=== PATIENT | male | born 1950 | race Caucasian/White ===

== ENCOUNTER → 2017-02-07 | Outpatient (REF) | payer MEDICARE, MEDICAID ==
[2017-02-07 13:25] LABS: ALBUMIN 4.4 GM/DL (3.2-5.2); ALBUMIN/GLOBULIN RATIO 1.47 (1.00-1.93); ALKALINE PHOSPHATASE 88 U/L (45-117); ALT/SGPT 19 U/L (12-78); ANION GAP 10 MEQ/L (8-16); AST/SGOT 28 U/L (15-37); BLOOD UREA NITROGEN 17 MG/DL (7-18); CALCIUM LEVEL 9.6 MG/DL (8.8-10.2); CARBON DIOXIDE LEVEL 34 MEQ/L (21-32); CHLORIDE LEVEL 96 MEQ/L (98-107); GLOMERULAR FILTRATION RATE > 60.0 (>49); GLUCOSE, FASTING 102 MG/DL (80-110); POTASSIUM SERUM 4.1 MEQ/L (3.5-5.1); SODIUM LEVEL 140 MEQ/L (136-145); TOTAL PROTEIN 7.4 GM/DL (6.4-8.2)
== END ==
LOC: M SFHCADAM 07:59
PROVIDERS: ATTEND Physician Assistant
DX: E87.6 Hypokalemia (principal); Z12.5 Encounter for screening for malignant neoplasm of prostate; R80.9 Proteinuria, unspecified
CPT/HCPCS: 80053; 82043; G0103

== ENCOUNTER 2017-04-11 16:19 | Emergency (ER) | payer MEDICARE, MEDICAID ==
[~2017-04-11] VITALS: Ht 165.1 cm; Wt 43.1 kg
[2017-04-11] MEDS ORDERED: K-TA10TA2 PO (16:36)
[2017-04-11] MEDS ORDERED: VITA100066 PO (16:36)
[2017-04-11] MEDS ORDERED: LEVO125T3 PO (16:36)
[2017-04-11] MEDS ORDERED: FURO40TA2 PO (16:36)
--- NOTE | 2017-04-11 17:06 | REP ---
Clinical: Epigastric and abdominal pain. Technique: Upright view of the chest with supine and upright views of the abdomen and pelvis. Findings: Frontal upright view of the chest demonstrates no acute cardiopulmonary process or free air below the diaphragm to suspect pneumoperitoneum. Supine and upright views of the abdomen and pelvis demonstrate nonspecific bowel gas pattern without obstruction or perforation. Moderate fecal stasis noted. No organomegaly. No abnormal calcifications. Skeletal structures normal for age. Impression: Nonspecific bowel gas pattern. Signed by Zacarias Manning MD 04/11/2017 04:57 P
[2017-04-11] MEDS ORDERED: KETOROLAC 30 MG/ML VIAL (J1885) IV ONE (18:00)
[2017-04-11] MEDS ORDERED: ONDANSETRON 4MG/2ML VIAL (J2405) IV ONE (18:00)
[2017-04-11] MEDS ORDERED: GASTROGRAFIN SOLUTION 30ML PO ONE (18:20)
[2017-04-11] MEDS ORDERED: GASTROGRAFIN SOLUTION 30ML (Q9963) PO ONE (18:50)
[2017-04-11 19:02] LABS: ALBUMIN 4.2 GM/DL (3.2-5.2); ALBUMIN/GLOBULIN RATIO 1.35 (1.00-1.93); ALKALINE PHOSPHATASE 100 U/L (45-117); ALT/SGPT 21 U/L (12-78); ANION GAP 5 MEQ/L (8-16); AST/SGOT 23 U/L (15-37); BILIRUBIN,DIRECT 0.1 MG/DL (0.0-0.2); BILIRUBIN,TOTAL 0.7 MG/DL (0.2-1.0); BLOOD UREA NITROGEN 17 MG/DL (7-18); CALCIUM LEVEL 9.4 MG/DL (8.8-10.2); CARBON DIOXIDE LEVEL 32 MEQ/L (21-32); CHLORIDE LEVEL 105 MEQ/L (98-107); CREATININE FOR GFR 1.06 MG/DL (0.70-1.30); GLOMERULAR FILTRATION RATE > 60.0 (>49); GLUCOSE, FASTING 79 MG/DL (80-110); POTASSIUM SERUM 3.1 MEQ/L (3.5-5.1); SODIUM LEVEL 142 MEQ/L (136-145); TOTAL PROTEIN 7.3 GM/DL (6.4-8.2)
[2017-04-11 19:03] LABS: BASO % 0.6 % (0.0-1.0); EOS # 0.1 K/mm3 (0.0-0.50); EOS % 1.7 % (0.0-3.0); LARGE UNSTAINED CELL # 0.1 K/mm3 (0.0-0.4); LARGE UNSTAINED CELL % 2.6 % (0.0-4.0); LYMPH # 0.8 K/mm3 (1.5-4.5); LYMPH % 20.7 % (24.0-44.0); MEAN CORPUSCULAR HEMOGLOBIN 30.8 pg (27.0-33.0); MONO # 0.2 K/mm3 (0.0-0.8); MONO % 5.1 % (0.0-5.0); NEUTROPHILS # 2.5 K/mm3 (1.8-7.7); NEUTROPHILS % 69.3 % (36.0-66.0); PLATELET COUNT, AUTOMATED 229 k/mm3 (150-450); RED CELL DISTRIBUTION WIDTH 12.8 % (11.5-14.5); WHITE BLOOD COUNT 3.7 K/mm3 (4.0-10.0)
[2017-04-11] MEDS ORDERED: ISOVUE-370 76% 100ML VIAL (Q9967) As Ordered ONE (19:31)
--- NOTE | 2017-04-11 20:01 | REP ---
Clinical: Right lower quadrant pain. Technique: Axial contrast enhanced images from the lung bases to the pubic symphysis using oral and 90 ml Isovue 370 intravenous contrast material with coronal and sagittal re-formations as well as delayed images of the abdomen. Comparison: 04/12/2010. Findings: Lung bases demonstrate minimal posterior basilar dependent changes. Visualized portions of the heart and pericardium are normal. Liver demonstrates at least three benign cavernous hemangiomas - the largest of which is noted in the right lobe measuring 4.5 cm diameter, second lesion in the left lobe measures 2.0 cm diameter, and third lesion in the inferior right lobe measures 1.7 cm maximal diameter. Spleen, pancreas, gallbladder, bilateral adrenal glands are normal. Kidneys demonstrate a 6 mm nonobstructing right renal calculus along with sub centimeter right and 1.2 cm left renal cysts. The enteric system demonstrates significant fecal stasis involving the entire colon as well as the distal ileum. Loops of mid to distal ileum in the pelvis demonstrate mural thickening and enhancement which may reflect underlying element of enteritis and possibly inflammatory bowel disease requires consideration. There is no evidence for bowel obstruction. No free air to suggest perforation. No free fluid. Pelvis demonstrates normal bladder and enlarged prostate gland. No significant intraperitoneal or retroperitoneal adenopathy appreciated. Abdominal aorta and vasculature without aneurysm or dissection. Surrounding musculoskeletal structures demonstrate age-related changes. Impression: 1. Significant diffuse fecal stasis involving the distal ileum and entire colon raising the possibility of underlying constipation. Mildly enhancing mid to distal ileal loops in the pelvis cannot exclude associated enteritis or inflammatory bowel disease and correlation may be warranted. There is no evidence for bowel obstruction or perforation. 2. Three hepatic cavernous benign hemangiomas measuring up to 4.5 cm maximal diameter. 3. Enlarged prostate gland. 4. 6 mm nonobstructing right renal calculus and small bilateral renal cysts up to 1.2 cm diameter. Signed by Zacarias Manning MD 04/11/2017 07:53 P
[2017-04-11] MEDS ORDERED: MAGNESIUM CITRATE 300 ML BTL PO ONE (20:30)
[2017-04-11 20:36] VITALS: BP 126/74
== END 2017-04-11 21:04 | disposition home or self-care (01) ==
LOC: M ED 16:40
DX: K59.00 Constipation, unspecified (principal); D18.03 Hemangioma of intra-abdominal structures; N40.0 Benign prostatic hyperplasia without lower urinary tract symptoms; N20.0 Calculus of kidney; N28.1 Cyst of kidney, acquired; H81.09 Meniere's disease, unspecified ear; E03.9 Hypothyroidism, unspecified
CPT/HCPCS: 74022; 74177; 80048; 80076; 83690; 85025; 99283; Q9963; Q9967

== ENCOUNTER 2017-08-19 14:19 | Emergency (ER) | payer MEDICARE, MEDICAID ==
[~2017-08-19] VITALS: Ht 165.1 cm; Wt 43.2 kg
[~2017-08-19 14:19] MED LIST: FURO40TA2 PO; K-TA10TA2 PO; LEVO125T4 PO; VITA100066 PO
[2017-08-19] MEDS ORDERED: NAPR500T3 PO (16:25)
[2017-08-19 16:30] VITALS: BP 136/65
--- NOTE | 2017-08-20 08:18 | REP ---
AP PELVIS, ONE VIEW: HISTORY: Left thigh pain. There is no acute fracture or dislocation. There is narrowing of the joint spaces with associated sclerosis. IMPRESSION: There is no acute fracture or dislocation. Signed by Luis Waldron MD 08/20/2017 08:44 A
--- NOTE | 2017-08-20 08:19 | REP ---
LEFT FEMUR, FOUR VIEWS: HISTORY: Left thigh pain. There is no acute fracture or dislocation. There is narrowing of the hip joint space with associated sclerosis. There is narrowing of the knee joint space. IMPRESSION: There is no acute fracture or dislocation. Signed by Luis Waldron MD 08/20/2017 08:45 A
== END 2017-08-19 16:43 | disposition home or self-care (01) ==
LOC: M ED 14:19
DX: M76.32 Iliotibial band syndrome, left leg (principal); H81.09 Meniere's disease, unspecified ear; E03.9 Hypothyroidism, unspecified; Z79.899 Other long term (current) drug therapy

== ENCOUNTER 2017-11-14 02:10 | Emergency (ER) | payer MEDICARE, MEDICAID ==
[2017-11-14] MEDS ORDERED: ONDANSETRON 4MG/2ML VIAL (J2405) IV (07:00)
[2017-11-14] MEDS: GASTROGRAFIN SOLUTION 30ML (Q9963) PO (07:37)
[2017-11-14] MEDS: GASTROGRAFIN SOLUTION 30ML PO (07:37)
[2017-11-14 08:19] LABS: BASO % 0.8 % (0.0-1.0); EOS # 0.1 10^3/uL (0.0-0.50); EOS % 2.9 % (0.0-3.0); IMMATURE GRANULOCYTE % 0.3 % (0-0); LYMPH # 1.2 10^3/uL (1.5-4.5); LYMPH % 31.1 % (24.0-44.0); MEAN CORPUSCULAR HEMOGLOBIN 29.8 pg (27.0-33.0); MEAN CORPUSCULAR HGB CONC 33.8 g/dl (32.0-36.5); MEAN CORPUSCULAR VOLUME 88.1 fl (80.0-96.0); MONO # 0.3 10^3/uL (0.0-0.8); MONO % 8.2 % (0.0-5.0); NEUTROPHILS # 2.1 10^3/uL (1.8-7.7); NEUTROPHILS % 56.7 % (36.0-66.0); PLATELET COUNT, AUTOMATED 193 10^3/uL (150-450); RED CELL DISTRIBUTION WIDTH 12.8 % (11.5-14.5); WHITE BLOOD COUNT 3.8 10^3/uL (4.0-10.0)
[2017-11-14] MEDS: KETOROLAC 30 MG/ML VIAL (J1885) IV (08:23)
[2017-11-14 08:37] LABS: ALBUMIN 3.8 GM/DL (3.2-5.2); ALBUMIN/GLOBULIN RATIO 1.31 (1.00-1.93); ALKALINE PHOSPHATASE 72 U/L (45-117); ALT/SGPT 17 U/L (12-78); ANION GAP 5 MEQ/L (8-16); AST/SGOT 22 U/L (7-37); BILIRUBIN,DIRECT 0.1 MG/DL (0.0-0.2); BILIRUBIN,TOTAL 0.6 MG/DL (0.2-1.0); BLOOD UREA NITROGEN 12 MG/DL (7-18); CALCIUM LEVEL 8.8 MG/DL (8.8-10.2); CARBON DIOXIDE LEVEL 32 MEQ/L (21-32); CHLORIDE LEVEL 107 MEQ/L (98-107); GLOMERULAR FILTRATION RATE > 60.0 (>49); GLUCOSE, FASTING 98 MG/DL (80-110); POTASSIUM SERUM 3.3 MEQ/L (3.5-5.1); SODIUM LEVEL 144 MEQ/L (136-145); TOTAL PROTEIN 6.7 GM/DL (6.4-8.2)
== END 2017-11-14 10:39 | disposition home or self-care (01) ==
LOC: M ED 02:10
DX: K59.00 Constipation, unspecified (principal); N20.0 Calculus of kidney; E03.9 Hypothyroidism, unspecified; H81.09 Meniere's disease, unspecified ear; Z79.899 Other long term (current) drug therapy; Z87.442 Personal history of urinary calculi
CPT/HCPCS: Q9963

== ENCOUNTER → 2018-02-12 | Outpatient (REF) | payer MEDICARE, MEDICAID ==
[2018-02-12 13:09] LABS: MAU/CREAT RATIO 43.8 MCG/MG (0.0-30.0)
[2018-02-12 13:17] LABS: ALBUMIN 3.8 GM/DL (3.2-5.2); ALBUMIN/GLOBULIN RATIO 1.36 (1.00-1.93); ALKALINE PHOSPHATASE 69 U/L (45-117); ALT/SGPT 19 U/L (12-78); ANION GAP 6 MEQ/L (8-16); AST/SGOT 25 U/L (7-37); BILIRUBIN,TOTAL 0.9 MG/DL (0.2-1.0); BLOOD UREA NITROGEN 15 MG/DL (7-18); CARBON DIOXIDE LEVEL 32 MEQ/L (21-32); CHLORIDE LEVEL 102 MEQ/L (98-107); CHOLESTEROL LEVEL 278 MG/DL (<200); CHOLESTEROL RISK RATIO 4.212 (<5); CREATININE FOR GFR 0.96 MG/DL (0.70-1.30); FREE T4 0.88 NG/DL (0.76-1.46); GLOMERULAR FILTRATION RATE > 60.0 (>49); GLUCOSE, FASTING 83 MG/DL (70-100); HDL CHOLESTEROL 66 MG/DL (>40); LDL CHOLESTEROL 182.4 MG/DL (<100); NON-HDL-C 212 MG/DL; POTASSIUM SERUM 3.3 MEQ/L (3.5-5.1); SODIUM LEVEL 140 MEQ/L (136-145); TOTAL PROTEIN 6.6 GM/DL (6.4-8.2); TRIGLYCERIDES LEVEL 148 MG/DL (<150)
== END ==
LOC: M SFHCADAM 08:33
DX: E03.9 Hypothyroidism, unspecified (principal); E78.5 Hyperlipidemia, unspecified; R00.2 Palpitations; R80.9 Proteinuria, unspecified
CPT/HCPCS: 84443

== ENCOUNTER 2018-04-04 16:23 | Emergency (ER) | payer MEDICARE, MEDICAID ==
[2018-04-04 17:43] LABS: BASO % 0.6 % (0.0-1.0); EOS % 1.2 % (0.0-3.0); HEMOGLOBIN 12.3 g/dl (13.5-17.5); IMMATURE GRANULOCYTE % 0.6 % (0-3.0); LYMPH # 0.8 10^3/uL (1.5-4.5); MEAN CORPUSCULAR HEMOGLOBIN 30.2 pg (27.0-33.0); MEAN CORPUSCULAR HGB CONC 34.2 g/dl (32.0-36.5); MEAN CORPUSCULAR VOLUME 88.5 fl (80.0-96.0); MONO # 0.2 10^3/uL (0.0-0.8); MONO % 6.3 % (0.0-5.0); NEUTROPHILS # 2.3 10^3/uL (1.8-7.7); NEUTROPHILS % 67.3 % (36.0-66.0); PLATELET COUNT, AUTOMATED 172 10^3/uL (150-450); RED BLOOD COUNT 4.07 10^6/uL (4.30-6.10); RED CELL DISTRIBUTION WIDTH 12.7 % (11.5-14.5); WHITE BLOOD COUNT 3.3 10^3/uL (4.0-10.0)
[2018-04-04 17:55] LABS: ALBUMIN 4.3 GM/DL (3.2-5.2); ALBUMIN/GLOBULIN RATIO 1.65 (1.00-1.93); ALKALINE PHOSPHATASE 68 U/L (45-117); ALT/SGPT 19 U/L (12-78); ANION GAP 5 MEQ/L (8-16); AST/SGOT 22 U/L (7-37); BILIRUBIN,DIRECT 0.3 MG/DL (0.0-0.2); BILIRUBIN,TOTAL 1.1 MG/DL (0.2-1.0); BLOOD UREA NITROGEN 23 MG/DL (7-18); CALCIUM LEVEL 8.9 MG/DL (8.8-10.2); CARBON DIOXIDE LEVEL 31 MEQ/L (21-32); CHLORIDE LEVEL 107 MEQ/L (98-107); CREATININE FOR GFR 0.99 MG/DL (0.70-1.30); GLOMERULAR FILTRATION RATE > 60.0 (>49); GLUCOSE, FASTING 85 MG/DL (70-100); LIPASE 249 U/L (73-393); SODIUM LEVEL 143 MEQ/L (136-145); TOTAL PROTEIN 6.9 GM/DL (6.4-8.2)
[2018-04-04 18:07] LABS: APPEARANCE, URINE CLEAR (CLEAR); BACTERIA, URINE AUTO NEGATIVE (NEGATIVE); BILIRUBIN, URINE AUTO NEGATIVE (NEGATIVE); BLOOD, URINE BLOOD 1+ (NEGATIVE); COLOR, URINE YELLOW (YELLOW); GLUCOSE, URINE (UA) AUTO NEGATIVE (NEGATIVE); KETONE, URINE AUTO NEGATIVE (NEGATIVE); LEUKOCYTE ESTERASE, URINE AUTO NEGATIVE (NEGATIVE); MUCUS, URINE SMALL (NEGATIVE); NITRITE, URINE AUTO NEGATIVE (NEGATIVE); PROTEIN, URINE AUTO NEGATIVE (NEGATIVE); RBC, URINE AUTO 32 /HPF (0-3); SPECIFIC GRAVITY URINE AUTO 1.024 (1.002-1.035); SQUAMOUS EPITHELIAL CELL UR AU 0 /HPF (0-6); WBC, URINE AUTO 10 /HPF (0-3)
[2018-04-04] MEDS: GASTROGRAFIN SOLUTION 30ML PO ×2 (18:25→18:58)
[2018-04-04] MEDS: NS 1,000 ML IV (18:45)
[2018-04-04] MEDS ORDERED: ISOVUE-370 76% 100ML VIAL (Q9967) As Ordered (19:20)
== END 2018-04-04 22:15 | disposition home or self-care (01) ==
LOC: M ED 16:23
DX: K59.00 Constipation, unspecified (principal); K22.9 Disease of esophagus, unspecified; E78.5 Hyperlipidemia, unspecified; R16.0 Hepatomegaly, not elsewhere classified; E03.9 Hypothyroidism, unspecified; H81.09 Meniere's disease, unspecified ear; Z87.442 Personal history of urinary calculi; Z79.899 Other long term (current) drug therapy
CPT/HCPCS: Q9963

== ENCOUNTER 2019-02-22 23:29 | Emergency (ER) | payer MEDICARE, MEDICAID ==
[~2019-02-22] VITALS: Ht 165.1 cm; Wt 43.2 kg
[~2019-02-22 23:29] MED LIST changes: +CRES5TAB PO; +MELO7.5T7 PO; +NAPR-885 PO
[2019-02-23 00:52] LABS: BASO % 0.5 % (0.0-1.0); EOS # 0.1 10^3/uL (0.0-0.50); EOS % 3.8 % (0.0-3.0); HEMOGLOBIN 10.7 g/dl (13.5-17.5); LYMPH % 26.8 % (24.0-44.0); MEAN CORPUSCULAR HEMOGLOBIN 29.8 pg (27.0-33.0); MEAN CORPUSCULAR HGB CONC 32.4 g/dl (32.0-36.5); MEAN CORPUSCULAR VOLUME 91.9 fl (80.0-96.0); MONO # 0.3 10^3/uL (0.0-0.8); MONO % 7.8 % (0.0-5.0); NEUTROPHILS # 2.2 10^3/uL (1.8-7.7); NEUTROPHILS % 60.6 % (36.0-66.0); PLATELET COUNT, AUTOMATED 144 10^3/uL (150-450); RED BLOOD COUNT 3.59 10^6/uL (4.30-6.10); WHITE BLOOD COUNT 3.7 10^3/uL (4.0-10.0)
[2019-02-23 01:02] LABS: INR 1.07
[2019-02-23 01:03] LABS: PARTIAL THROMBOPLASTIN TIME 27.3 SECONDS (25.4-37.6)
[2019-02-23 01:14] LABS: ALBUMIN 4.3 GM/DL (3.2-5.2); ALT/SGPT 31 U/L (12-78); BILIRUBIN,DIRECT 0.2 MG/DL (0.0-0.2); BILIRUBIN,TOTAL 0.7 MG/DL (0.2-1.0); BLOOD UREA NITROGEN 17 MG/DL (7-18); CALCIUM LEVEL 9.1 MG/DL (8.8-10.2); CARBON DIOXIDE LEVEL 32 MEQ/L (21-32); CHLORIDE LEVEL 106 MEQ/L (98-107); CREATININE FOR GFR 0.95 MG/DL (0.70-1.30); GLOMERULAR FILTRATION RATE > 60.0 (>49); GLUCOSE, FASTING 80 MG/DL (70-100); LIPASE 286 U/L (73-393); POTASSIUM SERUM 3.6 MEQ/L (3.5-5.1); SODIUM LEVEL 144 MEQ/L (136-145); TOTAL PROTEIN 6.8 GM/DL (6.4-8.2)
[2019-02-23] MEDS ORDERED: ISOVUE-370 76% 100ML VIAL (Q9967) As Ordered ONE (01:27)
[2019-02-23] MEDS ORDERED: NS 1,000 ML IV ONE (01:30)
[2019-02-23 02:34] LABS: AMORPHOUS SEDIMENT SMALL (NEGATIVE); APPEARANCE, URINE CLEAR (CLEAR); BACTERIA, URINE AUTO NEGATIVE (NEGATIVE); BILIRUBIN, URINE AUTO NEGATIVE (NEGATIVE); BLOOD, URINE BLOOD NEGATIVE (NEGATIVE); CALCIUM OXALATE CRYSTALS SMALL; COLOR, URINE YELLOW (YELLOW); GLUCOSE, URINE (UA) AUTO NEGATIVE (NEGATIVE); KETONE, URINE AUTO NEGATIVE (NEGATIVE); LEUKOCYTE ESTERASE, URINE AUTO TRACE (NEGATIVE); NITRITE, URINE AUTO NEGATIVE (NEGATIVE); PROTEIN, URINE AUTO NEGATIVE (NEGATIVE); RBC, URINE AUTO 3 /HPF (0-3); SPECIFIC GRAVITY URINE AUTO 1.042 (1.002-1.035); SQUAMOUS EPITHELIAL CELL UR AU 0 /HPF (0-6); WBC, URINE AUTO 16 /HPF (0-3)
--- NOTE | 2019-02-23 02:45 | REPVR ---
EXAM: CT Abdomen and Pelvis With Contrast EXAM DATE/TIME: 02/23/2019 1:40 AM CLINICAL HISTORY: 68 years old, male; Pain; Abdominal pain; Other: Rlq pain TECHNIQUE: Imaging protocol: Axial computed tomography images of the abdomen and pelvis with intravenous contrast. Coronal and sagittal reformatted images were created and reviewed. Radiation optimization: All CT scans at this facility use at least one of these dose optimization techniques: automated exposure control; mA and/or kV adjustment per patient size (includes targeted exams where dose is matched to clinical indication); or iterative reconstruction. Contrast material: isovue 370 Contrast volume: 100 ml Contrast route: iv COMPARISON: CT ABD/PEL W/IV ORAL CONTRAS 04/04/2018 7:55 PM FINDINGS: Lower thorax: Minimal bibasilar fibro-atelectatic change. ABDOMEN: Liver: Lobular low-attenuation area in the cephalad right hepatic lobe measuring 3.8 cm with some nodular peripheral enhancement consistent with hemangioma. There is a second similar lesion more caudal and lateral measuring 14 mm. Gallbladder and bile ducts: The gallbladder is somewhat contracted with no stones. Pancreas: Normal. No ductal dilation. Spleen: Normal. No splenomegaly. Adrenals: Normal. No mass. Kidneys and ureters: Nonobstructing bilateral calculi. There are left renal cysts measuring up to 11 mm. Stomach and bowel: Borderline distention of the stomach with food material. Appendix: There are no changes of appendicitis. A normal appendix is not seen. PELVIS: Bladder: Unremarkable as visualized. Reproductive: Unremarkable as visualized. ABDOMEN and PELVIS: Intraperitoneal space: Normal. No free air. No significant fluid collection. Bones/joints: Mild anterior wedge configuration of L1 which is unchanged from the prior study. Soft tissues: Minimal fat filled umbilical hernias. Vasculature: There is minimal atherosclerotic calcification of the abdominal aorta. Lymph nodes: Normal. No enlarged lymph nodes. IMPRESSION: 1. There is been little change 04/04/2018. No acute interval process is identified.There are no changes of appendicitis. A normal appendix is not seen. 2. Hepatic hemangiomas. 3. Nonobstructing bilateral calculi. 4. There is borderline distention of the stomach which in view of a somewhat contracted gallbladder likely reflects recent ingestion. Electronically signed by: Yoel Hernandes On 02/23/2019 02:45:03 AM
[2019-02-23 03:11] VITALS: BP 136/65
== END 2019-02-23 03:18 | disposition home or self-care (01) ==
LOC: M ED 23:29
DX: R10.9 Unspecified abdominal pain (principal); D18.09 Hemangioma of other sites; N20.0 Calculus of kidney; Z79.899 Other long term (current) drug therapy
CPT/HCPCS: 74177; 80048; 80076; 81001; 83690; 85025; 85610; 85730; 87086; 96360; 96361; 99284; Q9967

== ENCOUNTER 2019-03-16 18:37 | Emergency (ER) | payer MEDICARE, MEDICAID ==
[~2019-03-16] VITALS: Ht 165.1 cm; Wt 48.7 kg
[2019-03-16 18:37] VITALS: BP 157/69
[2019-03-16] MEDS ORDERED: TETRACAINE 0.5% OPHTH SOLN 4ML OD ONE (19:30)
[2019-03-16] MEDS ORDERED: FLUORESCEIN OPHTH 1 MG STRIP OD ONE (19:30)
== END 2019-03-16 19:56 | disposition home or self-care (01) ==
LOC: M ED 18:37
DX: H57.11 Ocular pain, right eye (principal); I10 Essential (primary) hypertension; E78.5 Hyperlipidemia, unspecified; H81.09 Meniere's disease, unspecified ear; E03.9 Hypothyroidism, unspecified; Z79.899 Other long term (current) drug therapy; Z79.890 Hormone replacement therapy

== ENCOUNTER → 2019-04-26 | Outpatient (REF) | payer MEDICARE, MEDICAID ==
[2019-04-26 12:16] LABS: BASO % 0.6 % (0.0-1.0); EOS # 0.3 10^3/uL (0.0-0.50); EOS % 5.2 % (0.0-3.0); HEMATOCRIT 35.5 % (42.0-52.0); HEMOGLOBIN 11.6 g/dl (13.5-17.5); LYMPH # 1.5 10^3/uL (1.5-4.5); LYMPH % 30.4 % (24.0-44.0); MEAN CORPUSCULAR HEMOGLOBIN 29.4 pg (27.0-33.0); MEAN CORPUSCULAR HGB CONC 32.7 g/dl (32.0-36.5); MEAN CORPUSCULAR VOLUME 90.1 fl (80.0-96.0); MONO # 0.3 10^3/uL (0.0-0.8); MONO % 6.8 % (0.0-5.0); NEUTROPHILS # 2.7 10^3/uL (1.8-7.7); NEUTROPHILS % 56.6 % (36.0-66.0); PLATELET COUNT, AUTOMATED 215 10^3/uL (150-450); RED BLOOD COUNT 3.94 10^6/uL (4.30-6.10); WHITE BLOOD COUNT 4.8 10^3/uL (4.0-10.0)
[2019-04-26 12:53] LABS: ALBUMIN 3.7 GM/DL (3.2-5.2); ALT/SGPT 35 U/L (12-78); BILIRUBIN,TOTAL 0.6 MG/DL (0.2-1.0); BLOOD UREA NITROGEN 12 MG/DL (7-18); CARBON DIOXIDE LEVEL 31 MEQ/L (21-32); CHLORIDE LEVEL 106 MEQ/L (98-107); CHOLESTEROL LEVEL 215 MG/DL (<200); CHOLESTEROL RISK RATIO 3.161 (<5); CREATININE FOR GFR 1.13 MG/DL (0.70-1.30); FREE T4 0.76 NG/DL (0.76-1.46); GLOMERULAR FILTRATION RATE > 60.0 (>49); GLUCOSE, FASTING 81 MG/DL (70-100); HDL CHOLESTEROL 68 MG/DL (>40); LDL CHOLESTEROL 120 MG/DL (<100); MAGNESIUM LEVEL 1.9 MG/DL (1.8-2.4); NON-HDL-C 147 MG/DL; POTASSIUM SERUM 4.3 MEQ/L (3.5-5.1); SODIUM LEVEL 144 MEQ/L (136-145); TRIGLYCERIDES LEVEL 136 MG/DL (<150)
[2019-04-26 13:22] LABS: TOTAL 25(OH) VITAMIN D 41.3 NG/ML (30.0-100.0)
== END ==
LOC: M SFHCADAM 10:31
PROVIDERS: ATTEND Physician Assistant
DX: D64.9 Anemia, unspecified (principal); E87.6 Hypokalemia; E78.5 Hyperlipidemia, unspecified; E03.9 Hypothyroidism, unspecified

== ENCOUNTER 2019-06-19 15:09 | Emergency (ER) | payer MEDICARE, MEDICAID ==
[~2019-06-19] VITALS: Ht 162.6 cm; Wt 45.5 kg
[2019-06-19] MEDS ORDERED: FURO20TA2 (15:15)
[2019-06-19] MEDS ORDERED: LEVO50TA5 (15:15)
[2019-06-19] MEDS ORDERED: ROSU10TA6 (15:15)
[2019-06-19] MEDS ORDERED: ACETAMINOPHEN TAB 650MG DOSE (2X325MG) PO ONE (16:30)
--- NOTE | 2019-06-19 16:49 | REP ---
Clinical: Right foot pain centered at the first toe Technique: AP, lateral, bilateral oblique views right foot . Findings: The osseous structures and joint spaces are intact and normal. There is no evidence for acute fracture or dislocation. Surrounding soft tissues are unremarkable. No subcutaneous emphysema or radiodense foreign body. Impression: No acute fracture or dislocation. Electronically Signed by Zacarias Manning MD 06/19/2019 04:41 P
[2019-06-19 18:11] VITALS: BP 154/74
== END 2019-06-19 18:14 | disposition home or self-care (01) ==
LOC: M ED 15:09
DX: M79.671 Pain in right foot (principal); E78.5 Hyperlipidemia, unspecified; E03.9 Hypothyroidism, unspecified; Z87.442 Personal history of urinary calculi; H81.09 Meniere's disease, unspecified ear; Z79.899 Other long term (current) drug therapy

== ENCOUNTER → 2020-04-28 | Outpatient (REF) | payer MEDICARE, MEDICAID ==
[~2020-04-28] MED LIST changes: +FURO20TA2; +LEVO50TA5; +ROSU10TA6
[2020-04-28 18:57] LABS: HEMOGLOBIN 12.6 g/dl (13.5-17.5); MEAN CORPUSCULAR HEMOGLOBIN 28.3 pg (27.0-33.0); MEAN CORPUSCULAR HGB CONC 33.2 g/dl (32.0-36.5); MEAN CORPUSCULAR VOLUME 85.4 fl (80.0-96.0); PLATELET COUNT, AUTOMATED 262 10^3/uL (150-450); RED BLOOD COUNT 4.45 10^6/uL (4.30-6.10); WHITE BLOOD COUNT 5.2 10^3/uL (4.0-10.0)
[2020-04-28 19:43] LABS: ALBUMIN 4.2 GM/DL (3.2-5.2); ALT/SGPT 37 U/L (12-78); BLOOD UREA NITROGEN 13 MG/DL (7-18); CALCIUM LEVEL 9.7 MG/DL (8.8-10.2); CARBON DIOXIDE LEVEL 31 MEQ/L (21-32); CHLORIDE LEVEL 101 MEQ/L (98-107); CHOLESTEROL LEVEL 298 MG/DL (<200); CREATININE FOR GFR 1.15 MG/DL (0.70-1.30); FERRITIN 20 NG/ML (26-388); FREE T4 0.97 NG/DL (0.76-1.46); GLOMERULAR FILTRATION RATE > 60.0 (>49); GLUCOSE, FASTING 99 MG/DL (70-100); HDL CHOLESTEROL 59 MG/DL (>40); IRON (FE) 102 UG/DL (65-175); LDL CHOLESTEROL 201 MG/DL (<100); NON-HDL-C 239 MG/DL; PERCENT SATURATION 22.1 % (19.7-50.0); POTASSIUM SERUM 3.6 MEQ/L (3.5-5.1); SODIUM LEVEL 140 MEQ/L (136-145); TOTAL IRON BINDING CAPACITY 462 UG/DL (250-450); TOTAL PROTEIN 7.5 GM/DL (6.4-8.2); TRIGLYCERIDES LEVEL 190 MG/DL (<150)
[2020-04-28 22:15] LABS: FOLATE > 24.0 NG/ML; VITAMIN B12 LEVEL 856 PG/ML
== END ==
LOC: M SFHCADAM 15:17
PROVIDERS: ATTEND Physician Assistant
DX: D64.9 Anemia, unspecified (principal); E78.5 Hyperlipidemia, unspecified; R60.9 Edema, unspecified; E03.9 Hypothyroidism, unspecified; Z12.5 Encounter for screening for malignant neoplasm of prostate
CPT/HCPCS: 80053; 80061; 82607; 82728; 82746; 83550; 84439; 84443; 85027; G0103

== ENCOUNTER → 2021-07-05 | Outpatient (REF) | payer MEDICARE, MEDICAID ==
[2021-07-05 17:17] LABS: HEMATOCRIT 37.2 % (42.0-52.0); HEMOGLOBIN 12.4 g/dl (13.5-17.5); MEAN CORPUSCULAR HEMOGLOBIN 28.6 pg (27.0-33.0); MEAN CORPUSCULAR HGB CONC 33.3 g/dl (32.0-36.5); MEAN CORPUSCULAR VOLUME 85.7 fl (80.0-96.0); PLATELET COUNT, AUTOMATED 226 10^3/uL (150-450); RED BLOOD COUNT 4.34 10^6/uL (4.30-6.10)
[2021-07-05 17:45] LABS: ALT/SGPT 95 U/L (12-78); BILIRUBIN,TOTAL 0.7 MG/DL (0.2-1.0); BLOOD UREA NITROGEN 10 MG/DL (7-18); CALCIUM LEVEL 9.4 MG/DL (8.8-10.2); CARBON DIOXIDE LEVEL 30 MEQ/L (21-32); CHLORIDE LEVEL 109 MEQ/L (98-107); CHOLESTEROL LEVEL 195 MG/DL (<200); CHOLESTEROL RISK RATIO 2.635 (<5); CREATININE FOR GFR 1.11 MG/DL (0.70-1.30); FERRITIN 14 NG/ML (26-388); FREE T4 0.68 NG/DL (0.76-1.46); GLOMERULAR FILTRATION RATE > 60.0 (>42); GLUCOSE, FASTING 74 MG/DL (70-100); HDL CHOLESTEROL 74 MG/DL (>40); IRON (FE) 71 UG/DL (65-175); LDL CHOLESTEROL 98 MG/DL (<100); NON-HDL-C 121 MG/DL; POTASSIUM SERUM 3.6 MEQ/L (3.5-5.1); SODIUM LEVEL 142 MEQ/L (136-145); TOTAL PROTEIN 6.7 GM/DL (6.4-8.2); TRIGLYCERIDES LEVEL 114 MG/DL (<150)
== END ==
LOC: M SFHCADAM 14:55
PROVIDERS: ATTEND Physician Assistant
DX: D50.8 Other iron deficiency anemias (principal); E03.9 Hypothyroidism, unspecified; R10.31 Right lower quadrant pain; R60.9 Edema, unspecified; E78.5 Hyperlipidemia, unspecified; Z12.5 Encounter for screening for malignant neoplasm of prostate
CPT/HCPCS: 80053; 80061; 82728; 83540; 84439; 84443; 85027; G0103

== ENCOUNTER 2021-07-22 15:40 | Emergency (ER) | payer MEDICARE, MEDICAID ==
[~2021-07-22] VITALS: Ht 165.1 cm; Wt 50.4 kg
[2021-07-22] MEDS ORDERED: VITMTA PO (16:41)
[2021-07-22 19:50] VITALS: BP 144/69
== END 2021-07-22 20:23 | disposition home or self-care (01) ==
LOC: M ED 15:40
DX: S76.012A Strain of muscle, fascia and tendon of left hip, initial encounter (principal); X58.XXXA Exposure to other specified factors, initial encounter; Y92.89 Other specified places as the place of occurrence of the external cause; Y93.89 Activity, other specified; Y99.8 Other external cause status; E78.5 Hyperlipidemia, unspecified; E78.00 Pure hypercholesterolemia, unspecified; I10 Essential (primary) hypertension; Z79.899 Other long term (current) drug therapy

== ENCOUNTER 2023-04-16 15:45 | Emergency (ER) | payer MEDICARE, MEDICAID ==
[~2023-04-16] VITALS: Ht 165.1 cm; Wt 47.6 kg
[~2023-04-16 15:45] MED LIST changes: +VITMTA PO
[2023-04-16 16:36] LABS: BASO % 0.4 % (0.0-1.0); EOS % 0.7 % (0.0-3.0); HEMOGLOBIN 13.6 g/dl (13.5-17.5); LYMPH # 0.8 10^3/uL (1.5-5.0); LYMPH % 17.3 % (24.0-44.0); MEAN CORPUSCULAR HEMOGLOBIN 29.4 pg (27.0-33.0); MEAN CORPUSCULAR HGB CONC 34.9 g/dl (32.0-36.5); MEAN CORPUSCULAR VOLUME 84.4 fl (80.0-96.0); MONO # 0.3 10^3/uL (0.0-0.8); NEUTROPHILS # 3.4 10^3/uL (1.5-8.5); NEUTROPHILS % 75.4 % (36.0-66.0); PLATELET COUNT, AUTOMATED 249 10^3/uL (150-450); RED BLOOD COUNT 4.62 10^6/uL (4.30-6.10); WHITE BLOOD COUNT 4.5 10^3/uL (4.0-10.0)
[2023-04-16 16:54] LABS: ALBUMIN 4.3 G/DL (3.2-5.2); BILIRUBIN,DIRECT 0.2 MG/DL (<0.4); BILIRUBIN,TOTAL 0.8 MG/DL (0.3-1.2); CALCIUM LEVEL 10.2 MG/DL (8.3-10.6); CREATININE FOR GFR 1.33 MG/DL (0.70-1.30); GLOMERULAR FILTRATION RATE 56.3 (>42); POTASSIUM SERUM 3.1 MMOL/L (3.5-5.1)
[2023-04-16] MEDS ORDERED: KETOROLAC 30 MG/ML 1ML VIAL IV ONE (18:35)
[2023-04-16] MEDS: GASTROGRAFIN SOLUTION 30ML PO SCH ×2 (20:16→20:47)
[2023-04-16] MEDS ORDERED: ISOVUE-370 76% 100ML VIAL As Ordered ONE (20:52)
[2023-04-16] MEDS ORDERED: CEFUROXIME 500 MG TAB PO ONE (23:10)
[2023-04-16] MEDS ORDERED: CEFU50TA PO (23:12)
[2023-04-16 23:47] VITALS: BP 158/81
== END 2023-04-16 23:49 | disposition home or self-care (01) ==
LOC: M ED 15:45
DX: N20.0 Calculus of kidney (principal); N39.0 Urinary tract infection, site not specified; D18.03 Hemangioma of intra-abdominal structures; I10 Essential (primary) hypertension; E78.5 Hyperlipidemia, unspecified; H81.09 Meniere's disease, unspecified ear; Z79.899 Other long term (current) drug therapy
CPT/HCPCS: 74177; 80048; 80076; 81001; 83690; 85025; 87086; 96374; 99283; J1885; Q9963; Q9967

== ENCOUNTER 2023-06-14 06:35 | Emergency (ER) | payer MEDICARE, MEDICAID ==
[~2023-06-14] VITALS: Ht 165.1 cm; Wt 49.3 kg
[~2023-06-14 06:35] MED LIST changes: +CEFU50TA PO; -K-TA10TA2 PO; +OMEP40CA4 PO; +POTA-165 PO; +SUCR1TA PO
[2023-06-14] MEDS ORDERED: KETOROLAC 30 MG/ML 1ML VIAL IV ONE (08:20)
[2023-06-14 08:40] LABS: BASO % 0.8 % (0.0-1.0); EOS # 0.1 10^3/uL (0.0-0.5); EOS % 1.1 % (0.0-3.0); HEMATOCRIT 39.8 % (42.0-52.0); HEMOGLOBIN 13.3 g/dl (13.5-17.5); LYMPH % 18.1 % (24.0-44.0); MEAN CORPUSCULAR HEMOGLOBIN 29.3 pg (27.0-33.0); MEAN CORPUSCULAR HGB CONC 33.4 g/dl (32.0-36.5); MEAN CORPUSCULAR VOLUME 87.7 fl (80.0-96.0); MONO # 0.3 10^3/uL (0.0-0.8); MONO % 6.5 % (2.0-8.0); NEUTROPHILS # 3.8 10^3/uL (1.5-8.5); NEUTROPHILS % 73.1 % (36.0-66.0); PLATELET COUNT, AUTOMATED 192 10^3/uL (150-450); RED BLOOD COUNT 4.54 10^6/uL (4.30-6.10); WHITE BLOOD COUNT 5.3 10^3/uL (4.0-10.0)
[2023-06-14 09:16] LABS: LIPASE 53 U/L (12-53)
[2023-06-14 09:19] LABS: ALBUMIN 3.9 G/DL (3.2-5.2); ALKALINE PHOSPHATASE 91 U/L (46-116); ALT/SGPT 22 U/L (7.0-40); AST/SGOT 26 U/L (<34); BILIRUBIN,DIRECT 0.3 MG/DL (<0.4); BILIRUBIN,TOTAL 1.5 MG/DL (0.3-1.2); BLOOD UREA NITROGEN 15 MG/DL (9-23); CALCIUM LEVEL 9.8 MG/DL (8.3-10.6); CARBON DIOXIDE LEVEL 28 MMOL/L (20-31); CHLORIDE LEVEL 101 MMOL/L (98-107); CREATININE FOR GFR 1.04 MG/DL (0.70-1.30); GLOMERULAR FILTRATION RATE > 60.0 (>42); GLUCOSE, FASTING 67 MG/DL (74-106); POTASSIUM SERUM 3.6 MMOL/L (3.5-5.1); SODIUM LEVEL 142 MMOL/L (136-145); TOTAL PROTEIN 6.5 G/DL (5.7-8.2)
[2023-06-14] MEDS: GASTROGRAFIN SOLUTION 30ML PO SCH ×2 (09:45→10:17)
[2023-06-14] MEDS ORDERED: DEXTROSE 50% 50ML SYRINGE IV STA (10:19)
[2023-06-14] MEDS ORDERED: ONDANSETRON 4MG 2ML VIAL IV ONE (10:20)
[2023-06-14] MEDS ORDERED: ISOVUE-370 76% 100ML VIAL As Ordered ONE (10:35)
[2023-06-14] MEDS ORDERED: NAPR-837 PO (13:08)
[2023-06-14 13:22] VITALS: BP 154/81; TEMP 96.9; O2SAT 97
== END 2023-06-14 13:22 | disposition home or self-care (01) ==
LOC: M ED 06:35
DX: R10.11 Right upper quadrant pain (principal); N20.0 Calculus of kidney
CPT/HCPCS: 74177; 80048; 80076; 81001; 83690; 85025; 87086; 96374; 96375; 99284; J1885; Q9963; Q9967

== ENCOUNTER 2023-07-24 23:07 | Emergency (ER) | payer MEDICARE, MEDICAID ==
[~2023-07-24] VITALS: Ht 165.1 cm; Wt 49.4 kg
[~2023-07-24 23:07] MED LIST changes: +NAPR-837 PO
[2023-07-25 00:01] LABS: BASO % 0.9 % (0.0-1.0); EOS # 0.1 10^3/uL (0.0-0.5); EOS % 2.5 % (0.0-3.0); HEMATOCRIT 38.1 % (42.0-52.0); HEMOGLOBIN 13.1 g/dl (13.5-17.5); LYMPH # 1.2 10^3/uL (1.5-5.0); LYMPH % 27.1 % (24.0-44.0); MEAN CORPUSCULAR HEMOGLOBIN 29.2 pg (27.0-33.0); MEAN CORPUSCULAR HGB CONC 34.4 g/dl (32.0-36.5); MONO # 0.4 10^3/uL (0.0-0.8); NEUTROPHILS # 2.6 10^3/uL (1.5-8.5); NEUTROPHILS % 60.3 % (36.0-66.0); PLATELET COUNT, AUTOMATED 231 10^3/uL (150-450); RED BLOOD COUNT 4.48 10^6/uL (4.30-6.10); WHITE BLOOD COUNT 4.4 10^3/uL (4.0-10.0)
[2023-07-25] MEDS ORDERED: ISOVUE-370 76% 100ML VIAL As Ordered ONE (01:59)
[2023-07-25] MEDS ORDERED: ONDANSETRON 4MG 2ML VIAL IV ONE (02:25)
[2023-07-25] MEDS ORDERED: POTASSIUM CHLORIDE 10% LIQ 20MEQ/15ML UDC PO ONE (02:25)
[2023-07-25 03:16] LABS: CPK CREATINE PHOSPHOKINASE 142 U/L (46-171)
[2023-07-25 03:17] LABS: BLOOD UREA NITROGEN 13 MG/DL (9-23); CALCIUM LEVEL 9.2 MG/DL (8.3-10.6); CARBON DIOXIDE LEVEL 32 MMOL/L (20-31); CHLORIDE LEVEL 100 MMOL/L (98-107); CK-MB VALUE MASS 2.9 NG/ML (<3.6); CREATININE FOR GFR 1.07 MG/DL (0.70-1.30); GLOMERULAR FILTRATION RATE > 60.0 (>42); GLUCOSE, FASTING 97 MG/DL (74-106); MB/CK RELATIVE INDEX 2.04 (< OR =4); POTASSIUM SERUM 3.3 MMOL/L (3.5-5.1); SODIUM LEVEL 138 MMOL/L (136-145)
[2023-07-25] MEDS ORDERED: NS 1,000 ML IV ONE (03:50)
[2023-07-25 07:01] VITALS: BP 170/77; TEMP 97.7; O2SAT 97
== END 2023-07-25 08:17 | disposition home or self-care (01) ==
LOC: M ED 23:07
DX: E86.0 Dehydration (principal); Z79.899 Other long term (current) drug therapy
CPT/HCPCS: 70450; 70496; 70498; 71045; 80047; 80048; 82550; 82553; 84484; 85025; 85730; 93005; 93041; 94760; 96374; 99285; J2405; Q9967

== ENCOUNTER 2023-10-28 15:43 | Emergency (ER) | payer MEDICARE, MEDICAID ==
[2023-10-28 16:52] LABS: BASO % 0.9 % (0.0-1.0); EOS # 0.1 10^3/uL (0.0-0.5); EOS % 2.4 % (0.0-3.0); HEMATOCRIT 39.2 % (42.0-52.0); HEMOGLOBIN 13.7 g/dl (13.5-17.5); LYMPH # 1.1 10^3/uL (1.5-5.0); LYMPH % 23.5 % (24.0-44.0); MEAN CORPUSCULAR HGB CONC 34.9 g/dl (32.0-36.5); MEAN CORPUSCULAR VOLUME 85.8 fl (80.0-96.0); MONO # 0.3 10^3/uL (0.0-0.8); PLATELET COUNT, AUTOMATED 231 10^3/uL (150-450); RED BLOOD COUNT 4.57 10^6/uL (4.30-6.10); WHITE BLOOD COUNT 4.6 10^3/uL (4.0-10.0)
[2023-10-28 16:56] LABS: LIPASE 66 U/L (12-53)
[2023-10-28 16:58] LABS: ALBUMIN 4.1 G/DL (3.2-5.2); ALKALINE PHOSPHATASE 110 U/L (46-116); ALT/SGPT 28 U/L (7.0-40); AST/SGOT 38 U/L (<34); BILIRUBIN,DIRECT 0.2 MG/DL (<0.4); TOTAL PROTEIN 6.8 G/DL (5.7-8.2)
[2023-10-28] MEDS ORDERED: POTASSIUM CHLORIDE 10MEQ SR TABLET PO ONE (18:15)
[2023-10-28] MEDS ORDERED: ISOVUE-370 76% 100ML VIAL As Ordered ONE (18:17)
[2023-10-28 18:36] LABS: BLOOD UREA NITROGEN 14 MG/DL (9-23); CALCIUM LEVEL 9.6 MG/DL (8.3-10.6); CARBON DIOXIDE LEVEL 28 MMOL/L (20-31); CHLORIDE LEVEL 102 MMOL/L (98-107); CREATININE FOR GFR 0.98 MG/DL (0.70-1.30); GLOMERULAR FILTRATION RATE > 60.0 (>42); GLUCOSE, FASTING 88 MG/DL (74-106); POTASSIUM SERUM 3.6 MMOL/L (3.5-5.1); SODIUM LEVEL 139 MMOL/L (136-145)
[2023-10-28 21:41] VITALS: BP 144/70; TEMP 98; O2SAT 100
[2023-10-28] MEDS ORDERED: KETOROLAC 30 MG/ML 1ML VIAL IV ONE (21:55)
[2023-10-28] MEDS ORDERED: KETOROLAC 30 MG/ML 1ML VIAL As Ordered ONE (21:55)
== END 2023-10-28 22:04 | disposition home or self-care (01) ==
LOC: M ED 15:43
DX: N40.0 Benign prostatic hyperplasia without lower urinary tract symptoms (principal); N32.89 Other specified disorders of bladder; N20.0 Calculus of kidney; E03.9 Hypothyroidism, unspecified; Z87.442 Personal history of urinary calculi; D18.03 Hemangioma of intra-abdominal structures
CPT/HCPCS: 74177; 80047; 80048; 80076; 81001; 83690; 85025; 87086; 93005; 99284; Q9967

== ENCOUNTER 2023-11-12 20:48 | Emergency (ER) | payer MEDICARE, MEDICAID ==
[~2023-11-12] VITALS: Ht 165.1 cm; Wt 49.1 kg
[2023-11-12 20:49] VITALS: TEMP 98.9; O2SAT 98
[2023-11-12 20:57] VITALS: BP 188/90
[2023-11-12 22:55] LABS: BASO % 0.6 % (0.0-1.0); EOS # 0.1 10^3/uL (0.0-0.5); EOS % 1.4 % (0.0-3.0); HEMATOCRIT 37.8 % (42.0-52.0); HEMOGLOBIN 13.2 g/dl (13.5-17.5); LYMPH # 1.2 10^3/uL (1.5-5.0); LYMPH % 23.1 % (24.0-44.0); MEAN CORPUSCULAR HEMOGLOBIN 29.5 pg (27.0-33.0); MEAN CORPUSCULAR HGB CONC 34.9 g/dl (32.0-36.5); MEAN CORPUSCULAR VOLUME 84.6 fl (80.0-96.0); MONO # 0.3 10^3/uL (0.0-0.8); MONO % 5.9 % (2.0-8.0); NEUTROPHILS # 3.5 10^3/uL (1.5-8.5); NEUTROPHILS % 68.8 % (36.0-66.0); PLATELET COUNT, AUTOMATED 215 10^3/uL (150-450); RED BLOOD COUNT 4.47 10^6/uL (4.30-6.10); WHITE BLOOD COUNT 5.1 10^3/uL (4.0-10.0)
[2023-11-12 23:11] LABS: INR 1.07; PROTHROMBIN TIME 13.6 SECONDS (12.5-14.5)
[2023-11-12 23:12] LABS: PARTIAL THROMBOPLASTIN TIME 24.9 SECONDS (24.8-34.2)
[2023-11-13 00:17] LABS: BILIRUBIN,DIRECT 0.2 MG/DL (<0.4); BILIRUBIN,TOTAL 0.6 MG/DL (0.3-1.2); CALCIUM LEVEL 9.9 MG/DL (8.3-10.6); CREATININE FOR GFR 1.27 MG/DL (0.70-1.30); GLOMERULAR FILTRATION RATE 59.2 (>42); POTASSIUM SERUM 3.1 MMOL/L (3.5-5.1); TOTAL PROTEIN 6.5 G/DL (5.7-8.2)
[2023-11-13] MEDS ORDERED: ISOVUE-370 76% 100ML VIAL As Ordered ONE (00:22)
[2023-11-13] MEDS ORDERED: KCL 10MEQ/100ML SWI (KRUN) 10 MEQ in IV 1 EA IV ONE (01:00)
[2023-11-13] MEDS ORDERED: POTA1TAB23 PO (01:18)
== END 2023-11-13 02:34 | disposition home or self-care (01) ==
LOC: M ED 20:48
DX: K62.5 Hemorrhage of anus and rectum (principal); E87.6 Hypokalemia; K57.30 Diverticulosis of large intestine without perforation or abscess without bleeding; N20.0 Calculus of kidney; N28.1 Cyst of kidney, acquired
CPT/HCPCS: 74177; 80048; 80076; 85025; 85610; 85730; 86850; 86900; 86901; 96374; 99284; Q9967

== ENCOUNTER 2024-01-26 11:53 | Day surgery (SDC) | payer MEDICARE, MEDICAID ==
[~2024-01-26] VITALS: Ht 165.1 cm; Wt 49.4 kg
[~2024-01-26 11:53] MED LIST changes: +POTA1TAB23 PO; +THERTAB52 PO
[2024-01-26] MEDS: NS 1,000 ML IV ONE (13:14)
[2024-01-26] MEDS ORDERED: fentaNYL 100 MCG/2 ML INJECTION As Ordered ONE (14:23)
[2024-01-26] MEDS ORDERED: LIDOCAINE 2% 100MG/5ML SDV (FOR ANES.) As Ordered ONE (14:39)
[2024-01-26] MEDS ORDERED: propofoL 200 MG/20 ML VIAL As Ordered ONE (14:39)
[2024-01-26 15:05] VITALS: TEMP 97.6
[2024-01-26 15:34] VITALS: BP 125/66; O2SAT 97
== END 2024-01-26 15:37 | disposition home or self-care (01) ==
LOC: M OPP 11:53
PROVIDERS: ATTEND Surgery
DX: K64.4 Residual hemorrhoidal skin tags (principal); K57.30 Diverticulosis of large intestine without perforation or abscess without bleeding; K62.5 Hemorrhage of anus and rectum; K63.89 Other specified diseases of intestine; B96.81 Helicobacter pylori [H. pylori] as the cause of diseases classified elsewhere; R10.33 Periumbilical pain; R10.31 Right lower quadrant pain
CPT/HCPCS: 43239; 45378; 88305; J3010

== ENCOUNTER 2024-02-29 14:02 | Emergency (ER) | payer MEDICARE, MEDICAID ==
[~2024-02-29] VITALS: Ht 165.1 cm; Wt 50.0 kg
[2024-02-29 14:04] VITALS: BP 139/92; TEMP 98; O2SAT 98
[2024-02-29] MEDS ORDERED: AMOX500C PO (14:15)
[2024-02-29] MEDS: TETRACAINE 0.5% OPHTH SOLN 4ML OU ONE (16:36)
[2024-02-29] MEDS: FLUORESCEIN OPHTH 1MG STRIP OU ONE (16:36)
== END 2024-02-29 17:12 | disposition home or self-care (01) ==
LOC: M ED 14:02
DX: H53.19 Other subjective visual disturbances (principal); Z79.2 Long term (current) use of antibiotics

== ENCOUNTER 2024-05-13 18:07 | Emergency (ER) | payer MEDICARE, MEDICAID ==
[~2024-05-13] VITALS: Ht 162.6 cm; Wt 47.8 kg
[~2024-05-13 18:07] MED LIST changes: +AMOX500C PO; -ROSU10TA6; +ROSU10TA61
[2024-05-13 22:43] LABS: BASO % 0.5 % (0.0-1.0); EOS % 0.3 % (0.0-3.0); HEMATOCRIT 41.8 % (42.0-52.0); HEMOGLOBIN 14.7 g/dl (13.5-17.5); LYMPH # 1.4 10^3/uL (1.5-5.0); LYMPH % 23.8 % (24.0-44.0); MEAN CORPUSCULAR HEMOGLOBIN 30.4 pg (27.0-33.0); MEAN CORPUSCULAR HGB CONC 35.2 g/dl (32.0-36.5); MEAN CORPUSCULAR VOLUME 86.5 fl (80.0-96.0); MONO # 0.4 10^3/uL (0.0-0.8); MONO % 7.1 % (2.0-8.0); NEUTROPHILS % 68.1 % (36.0-66.0); PLATELET COUNT, AUTOMATED 261 10^3/uL (150-450); RED BLOOD COUNT 4.83 10^6/uL (4.30-6.10); WHITE BLOOD COUNT 5.9 10^3/uL (4.0-10.0)
[2024-05-13 23:06] LABS: ALBUMIN 4.7 G/DL (3.2-5.2); BILIRUBIN,DIRECT 0.3 MG/DL (<0.4); BILIRUBIN,TOTAL 1.3 MG/DL (0.3-1.2); CALCIUM LEVEL 10.7 MG/DL (8.3-10.6); CREATININE FOR GFR 1.4 MG/DL (0.70-1.30); GLOMERULAR FILTRATION RATE 52.9 (>42); POTASSIUM SERUM 3.6 MMOL/L (3.5-5.1); TOTAL PROTEIN 7.6 G/DL (5.7-8.2)
[2024-05-14] MEDS: NS 1,000 ML IV ONE (02:30)
[2024-05-14] MEDS: GASTROGRAFIN SOLUTION 30ML PO SCH (02:56)
[2024-05-14] MEDS ORDERED: ISOVUE-370 76% 100ML VIAL As Ordered ONE (03:08)
[2024-05-14] MEDS: cefTRIAXone SOD 1 GM in D5W MINI-BAG PLUS 50 ML IV ONE (03:11)
[2024-05-14] MEDS ORDERED: CEFD1CAP9 PO (04:51)
[2024-05-14 05:00] VITALS: BP 124/66; TEMP 96; O2SAT 99
== END 2024-05-14 05:20 | disposition home or self-care (01) ==
LOC: M ED 18:07
DX: N41.0 Acute prostatitis (principal); K40.90 Unilateral inguinal hernia, without obstruction or gangrene, not specified as recurrent; Z79.2 Long term (current) use of antibiotics
CPT/HCPCS: 74177; 80048; 80076; 81001; 83605; 83690; 85025; 86140; 87086; 93041; 96360; 96365; 99284; J0696; Q9963; Q9967

== ENCOUNTER 2024-05-23 08:07 | Observation (INO) | payer MEDICARE, MEDICAID ==
[~2024-05-23] VITALS: Ht 162.6 cm; Wt 50.1 kg
[~2024-05-23 08:07] MED LIST changes: +CEFD1CAP9 PO
[2024-05-23 09:53] LABS: BASO % 0.4 % (0.0-1.0); EOS # 0.1 10^3/uL (0.0-0.5); HEMATOCRIT 38.3 % (42.0-52.0); HEMOGLOBIN 13.4 g/dl (13.5-17.5); LYMPH # 1.4 10^3/uL (1.5-5.0); LYMPH % 18.7 % (24.0-44.0); MEAN CORPUSCULAR HEMOGLOBIN 30.5 pg (27.0-33.0); MEAN CORPUSCULAR VOLUME 87.2 fl (80.0-96.0); MONO # 0.5 10^3/uL (0.0-0.8); MONO % 6.5 % (2.0-8.0); NEUTROPHILS # 5.4 10^3/uL (1.5-8.5); PLATELET COUNT, AUTOMATED 216 10^3/uL (150-450); RED BLOOD COUNT 4.39 10^6/uL (4.30-6.10); WHITE BLOOD COUNT 7.3 10^3/uL (4.0-10.0)
[2024-05-23 10:23] LABS: ALBUMIN 4.3 G/DL (3.2-5.2); BILIRUBIN,DIRECT 0.2 MG/DL (<0.4); BILIRUBIN,TOTAL 0.9 MG/DL (0.3-1.2); CALCIUM LEVEL 9.8 MG/DL (8.3-10.6); CREATININE FOR GFR 1.26 MG/DL (0.70-1.30); GLOMERULAR FILTRATION RATE 59.7 (>42); POTASSIUM SERUM 2.7 MMOL/L (3.5-5.1); TOTAL PROTEIN 6.7 G/DL (5.7-8.2)
[2024-05-23] MEDS ORDERED: POTASSIUM CHLORIDE 10% LIQ 20MEQ/15ML UDC PO ONE (10:25)
[2024-05-23] MEDS: KCL 10MEQ/100ML SWI (KRUN) 10 MEQ in IV 1 EA IV ONE (10:45)
[2024-05-23] MEDS: ACETAMINOPHEN TAB 650MG DOSE (2X325MG) PO ONE (11:24)
[2024-05-23] MEDS: POTASSIUM CHLORIDE 10MEQ SR TABLET PO ONE (11:25)
[2024-05-23] MEDS ORDERED: ACETAMINOPHEN TAB 650MG DOSE (2X325MG) PO PRN (14:05)
[2024-05-23] MEDS ORDERED: MAALOX 30 ML SUSP *UDC PO PRN (14:05)
[2024-05-23] MEDS ORDERED: MOM 30ML SUSPENSION UDC PO PRN (14:05)
[2024-05-23] MEDS: MAG SULF 1GM/100ML (MAG RUN) 1 GM in IV 1 EA IV ONE (14:58)
[2024-05-23 15:20] VITALS: BP 142/82; TEMP 97.7; O2SAT 99
[2024-05-23] MEDS ORDERED: CEFD1CAP9 PO (16:18)
[2024-05-23] MEDS ORDERED: HOME MED LIST COMPLETE! XX SCH (16:25)
[2024-05-23 17:59] LABS: BLOOD UREA NITROGEN 12 MG/DL (9-23); CALCIUM LEVEL 8.8 MG/DL (8.3-10.6); CARBON DIOXIDE LEVEL 29 MMOL/L (20-31); CHLORIDE LEVEL 106 MMOL/L (98-107); CREATININE FOR GFR 1.12 MG/DL (0.70-1.30); GLOMERULAR FILTRATION RATE > 60.0 (>42); GLUCOSE, FASTING 85 MG/DL (74-106); MAGNESIUM LEVEL 2.3 MG/DL (1.8-2.4); POTASSIUM SERUM 3.4 MMOL/L (3.5-5.1); SODIUM LEVEL 140 MMOL/L (136-145)
[2024-05-23] MEDS ORDERED: POTA-298 PO (18:01)
[2024-05-23] MEDS: POTASSIUM CHLORIDE 10MEQ SR TABLET PO SCH (18:22)
[2024-05-23] MEDS ORDERED: DOCUSATE SODIUM 100MG CAPSULE PO SCH (21:00)
[2024-05-24] MEDS ORDERED: ENOXAPARIN 40MG/0.4ML SYRINGE (J1650 PER 10MG) SC SCH (09:00)
== END 2024-05-23 18:38 | disposition home or self-care (01) ==
LOC: M ED 08:07 → M ED INP 08:08 → M MSPAV 15:16
PROVIDERS: ADMIT Internal Medicine; ATTEND Internal Medicine
DX: R10.30 Lower abdominal pain, unspecified (principal); K40.20 Bilateral inguinal hernia, without obstruction or gangrene, not specified as recurrent; E87.6 Hypokalemia; F41.9 Anxiety disorder, unspecified; F32.A Depression, unspecified; Z79.899 Other long term (current) drug therapy
CPT/HCPCS: 36415; 76857; 76870; 80047; 80048; 80076; 81001; 83605; 83690; 83735; 84132; 85025; 87086; 93005; 93976; 96360; 99284; G0378; J3475

== ENCOUNTER 2024-07-03 10:14 | Day surgery (SDC) | payer MEDICARE, MEDICAID ==
[~2024-07-03] VITALS: Ht 162.6 cm; Wt 49.5 kg
[~2024-07-03 10:14] MED LIST changes: +POTA-298 PO; +POTA99CA2 PO
[2024-07-03] MEDS: CelecoXIB 400 MG CAP PO ONE (10:50)
[2024-07-03] MEDS: LR 1,000 ML IV SCH ×2 (10:52→19:25)
[2024-07-03] MEDS ORDERED: ROCURONIUM BROMIDE 50MG/5ML VIAL As Ordered ONE (12:30)
[2024-07-03] MEDS ORDERED: propofoL 200 MG/20 ML VIAL As Ordered ONE (12:30)
[2024-07-03] MEDS ORDERED: fentaNYL 250 MCG/5 ML INJECTION As Ordered ONE (12:30)
[2024-07-03] MEDS ORDERED: LIDOCAINE 2% 100MG/5ML SDV (FOR ANES.) As Ordered ONE (12:30)
[2024-07-03] MEDS ORDERED: HYDROmorphone HCL 2MG/ML 1ML VIAL As Ordered ONE (12:30)
[2024-07-03] MEDS ORDERED: ONDANSETRON 4MG 2ML VIAL As Ordered ONE (12:30)
[2024-07-03] MEDS ORDERED: MIDAZOLAM INJ 2MG/2ML VIAL As Ordered ONE (12:30)
[2024-07-03] MEDS ORDERED: SUGAMMADEX SODIUM 500 MG/5 ML VIAL (BRIDION) As Ordered ONE (12:30)
[2024-07-03] MEDS ORDERED: METOCLOPRAMIDE INJ 10MG/2ML VIAL As Ordered ONE (12:30)
[2024-07-03] MEDS ORDERED: KETOROLAC 60MG 2ML VIAL As Ordered ONE (12:30)
[2024-07-03] MEDS: ceFAZolin SOD 2 GM in IV 1 EA IV ONE (14:56)
[2024-07-03] MEDS ORDERED: ePHEDrine SULFATE 25 MG/5 ML(5MG/ML) SYRINGE As Ordered ONE (15:31)
[2024-07-03] MEDS: LIDOCAINE 1% SDV 30ML VIAL As Ordered ONE (16:54)
[2024-07-03] MEDS ORDERED: ACETAMINOPHEN TAB 650MG DOSE (2X325MG) PO PRN (17:10)
[2024-07-03] MEDS ORDERED: NORCO, ANEXSIA 5/325MG TABLET (HYDROcodone/ACETAMINOPHEN) PO PRN (17:10)
[2024-07-03] MEDS ORDERED: HYDROMORPHONE HCL 0.5 MG/ 0.5 ML SYRINGE IV PRN (17:15)
[2024-07-03] MEDS ORDERED: fentaNYL 100 MCG/2 ML INJECTION IV PRN (17:15)
[2024-07-03] MEDS: oxyCODONE 5MG TAB PO PRN (18:10)
[2024-07-03] MEDS: ONDANSETRON 4MG 2ML VIAL IV PRN (18:17)
[2024-07-03 18:30] VITALS: BP 139/74; TEMP 97.2; O2SAT 95
[2024-07-03 19:00] VITALS: BP 134/71; TEMP 97.3; O2SAT 97
[2024-07-03 19:56] VITALS: BP 131/71; TEMP 97.2; O2SAT 100
[2024-07-03 21:02] VITALS: BP 132/71; TEMP 97.2; O2SAT 99
[2024-07-03] MEDS: METOCLOPRAMIDE INJ 10MG/2ML VIAL IV PRN (21:22)
[2024-07-03 22:04] VITALS: BP 128/67; TEMP 97.5; O2SAT 99
[2024-07-03 23:05] VITALS: BP 131/68; TEMP 97; O2SAT 99
[2024-07-04] MEDS: ONDANSETRON 4MG 2ML VIAL IV PRN (00:34)
[2024-07-04 02:59] VITALS: BP 129/67; TEMP 97.9; O2SAT 95
[2024-07-04 06:55] VITALS: BP 123/63; TEMP 98.6; O2SAT 97
[2024-07-04 08:00] VITALS: BP 110/50; TEMP 98.1; O2SAT 97
[2024-07-04] MEDS: ONDANSETRON 4MG 2ML VIAL IV SCH (09:06)
[2024-07-04 10:18] LABS: BASO % 0.1 % (0.0-1.0); HEMATOCRIT 32.1 % (42.0-52.0); HEMOGLOBIN 11.1 g/dl (13.5-17.5); LYMPH # 0.6 10^3/uL (1.5-5.0); LYMPH % 7.9 % (24.0-44.0); MEAN CORPUSCULAR HGB CONC 34.6 g/dl (32.0-36.5); MEAN CORPUSCULAR VOLUME 86.8 fl (80.0-96.0); MONO # 0.6 10^3/uL (0.0-0.8); MONO % 7.4 % (2.0-8.0); NEUTROPHILS # 6.4 10^3/uL (1.5-8.5); NEUTROPHILS % 84.3 % (36.0-66.0); PLATELET COUNT, AUTOMATED 181 10^3/uL (150-450); WHITE BLOOD COUNT 7.6 10^3/uL (4.0-10.0)
[2024-07-04] MEDS ORDERED: HOME MED LIST COMPLETE! XX SCH (10:25)
[2024-07-04 10:47] LABS: BLOOD UREA NITROGEN 19 MG/DL (9-23); CALCIUM LEVEL 8.8 MG/DL (8.3-10.6); CARBON DIOXIDE LEVEL 30 MMOL/L (20-31); CHLORIDE LEVEL 102 MMOL/L (98-107); CREATININE FOR GFR 1.09 MG/DL (0.70-1.30); GLOMERULAR FILTRATION RATE > 60.0 (>42); GLUCOSE, FASTING 174 MG/DL (74-106); POTASSIUM SERUM 4.1 MMOL/L (3.5-5.1); SODIUM LEVEL 137 MMOL/L (136-145)
[2024-07-04 12:03] VITALS: BP 110/58; TEMP 98.1; O2SAT 95
[2024-07-04] MEDS: PANTOPRAZOLE 40MG VIAL IV SCH (12:21)
[2024-07-04] MEDS: NORCO, ANEXSIA 5/325MG TABLET (HYDROcodone/ACETAMINOPHEN) PO PRN (12:25)
[2024-07-04] MEDS: KETOROLAC 30 MG/ML 1ML VIAL IV PRN (15:23)
[2024-07-04 16:00] VITALS: BP 133/70; TEMP 97.9; O2SAT 98
[2024-07-04 19:36] VITALS: BP 140/75; TEMP 98.1; O2SAT 97
[2024-07-05 03:34] VITALS: BP 136/74; TEMP 98.4; O2SAT 97
== END 2024-07-05 11:00 | disposition home or self-care (01) ==
LOC: M SDC 10:14 → M MS5PR 16:25 → M SDC 07-05 11:00
PROVIDERS: ATTEND Surgery
DX: K40.20 Bilateral inguinal hernia, without obstruction or gangrene, not specified as recurrent (principal); K41.90 Unilateral femoral hernia, without obstruction or gangrene, not specified as recurrent; N40.1 Benign prostatic hyperplasia with lower urinary tract symptoms; R39.12 Poor urinary stream; Z90.89 Acquired absence of other organs
CPT/HCPCS: 36415; 49650; 80048; 85025; C1781; J0665; J0690; J1100; J1170; J1885; J2250; J2405; J2470; J2765; J3010

== ENCOUNTER 2024-07-17 09:28 | Observation (INO) | payer MEDICARE, MEDICAID ==
[~2024-07-17] VITALS: Ht 162.6 cm; Wt 48.9 kg
[2024-07-17] MEDS: PERCOCET 5MG/325MG TAB PO ONE (10:14)
[2024-07-17] MEDS: NS 1,000 ML IV SCH (10:32)
[2024-07-17] MEDS: ONDANSETRON 4MG 2ML VIAL IV ONE (10:43)
[2024-07-17 10:48] LABS: BASO % 0.4 % (0.0-1.0); EOS % 0.4 % (0.0-3.0); HEMATOCRIT 38.9 % (42.0-52.0); HEMOGLOBIN 13.4 g/dl (13.5-17.5); LYMPH % 14.9 % (24.0-44.0); MEAN CORPUSCULAR HEMOGLOBIN 30.2 pg (27.0-33.0); MEAN CORPUSCULAR HGB CONC 34.4 g/dl (32.0-36.5); MEAN CORPUSCULAR VOLUME 87.8 fl (80.0-96.0); MONO # 0.4 10^3/uL (0.0-0.8); MONO % 5.1 % (2.0-8.0); NEUTROPHILS # 5.5 10^3/uL (1.5-8.5); NEUTROPHILS % 78.9 % (36.0-66.0); PLATELET COUNT, AUTOMATED 233 10^3/uL (150-450); RED BLOOD COUNT 4.43 10^6/uL (4.30-6.10); WHITE BLOOD COUNT 6.9 10^3/uL (4.0-10.0)
[2024-07-17 11:20] LABS: LIPASE 36 U/L (12-53)
[2024-07-17 11:22] LABS: ALBUMIN 4.1 G/DL (3.2-5.2); ALKALINE PHOSPHATASE 91 U/L (46-116); ALT/SGPT 19 U/L (7.0-40); AST/SGOT 20 U/L (<34); BILIRUBIN,DIRECT 0.3 MG/DL (<0.4); BILIRUBIN,TOTAL 1.3 MG/DL (0.3-1.2); BLOOD UREA NITROGEN 14 MG/DL (9-23); CALCIUM LEVEL 9.3 MG/DL (8.3-10.6); CARBON DIOXIDE LEVEL 28 MMOL/L (20-31); CHLORIDE LEVEL 102 MMOL/L (98-107); CREATININE FOR GFR 0.94 MG/DL (0.70-1.30); GLOMERULAR FILTRATION RATE > 60.0 (>42); GLUCOSE, FASTING 75 MG/DL (74-106); POTASSIUM SERUM 3.4 MMOL/L (3.5-5.1); SODIUM LEVEL 137 MMOL/L (136-145); TOTAL PROTEIN 6.7 G/DL (5.7-8.2)
[2024-07-17] MEDS ORDERED: ISOVUE-370 76% 100ML VIAL As Ordered ONE (11:50)
[2024-07-17] MEDS ORDERED: CENT1TAB PO (13:50)
[2024-07-17] MEDS ORDERED: HYDR-3713 PO (13:51)
[2024-07-17] MEDS ORDERED: HOME MED LIST COMPLETE! XX SCH (13:55)
[2024-07-17] MEDS: PIPERACILLIN/TAZOBACTAM SOD 3.375 GM in D5W MINI-BAG PLUS 50 ML IV ONE (14:42)
[2024-07-17] MEDS ORDERED: MORPHINE 2 MG/ML 1ML VIAL IV PRN (14:50)
[2024-07-17] MEDS ORDERED: ONDANSETRON 4MG 2ML VIAL IV PRN (14:50)
[2024-07-17] MEDS: LR 1,000 ML IV SCH (16:09)
[2024-07-17] MEDS: POTASSIUM CHLORIDE 10MEQ SR TABLET PO ONE (16:10)
[2024-07-17 16:40] LABS: C REACTIVE PROTEIN QUANTITATIV < 0.40 MG/DL (<1.0)
[2024-07-17 16:47] LABS: PROCALCITONIN 0.07 ng/ml
[2024-07-17 16:50] LABS: MAGNESIUM LEVEL 1.6 MG/DL (1.8-2.4)
[2024-07-17 17:50] VITALS: BP 160/93; TEMP 98.1; O2SAT 99
[2024-07-17] MEDS: MAG SULF 1GM/100ML (MAG RUN) 1 GM in IV 1 EA IV SCH (18:25)
[2024-07-17 19:44] VITALS: BP 135/70; TEMP 98.1; O2SAT 98
[2024-07-17 20:00] VITALS: BP 135/70; TEMP 98.1; O2SAT 98
[2024-07-17] MEDS: PIPERACILLIN/TAZOBACTAM SOD 3.375 GM in D5W MINI-BAG PLUS 50 ML IV SCH (20:22)
[2024-07-17] MEDS: HEPARIN SOD (PORCINE) 5000UNITS/ML 1ML VIAL/SYRINGE SC SCH (21:02)
[2024-07-17] MEDS: PERCOCET 5MG/325MG TAB PO PRN (22:13)
[2024-07-18] VITALS: BP 126/64; TEMP 98.1; O2SAT 98
[2024-07-18 03:48] VITALS: BP 128/69; TEMP 98.1; O2SAT 99
[2024-07-18 06:26] LABS: HEMATOCRIT 33.2 % (42.0-52.0); HEMOGLOBIN 11.5 g/dl (13.5-17.5); MEAN CORPUSCULAR HEMOGLOBIN 30.3 pg (27.0-33.0); MEAN CORPUSCULAR HGB CONC 34.6 g/dl (32.0-36.5); MEAN CORPUSCULAR VOLUME 87.6 fl (80.0-96.0); PLATELET COUNT, AUTOMATED 217 10^3/uL (150-450); RED BLOOD COUNT 3.79 10^6/uL (4.30-6.10); WHITE BLOOD COUNT 4.3 10^3/uL (4.0-10.0)
[2024-07-18 06:31] LABS: C REACTIVE PROTEIN QUANTITATIV < 0.40 MG/DL (<1.0)
[2024-07-18 06:32] LABS: BLOOD UREA NITROGEN 14 MG/DL (9-23); CALCIUM LEVEL 8.4 MG/DL (8.3-10.6); CARBON DIOXIDE LEVEL 30 MMOL/L (20-31); CHLORIDE LEVEL 105 MMOL/L (98-107); CREATININE FOR GFR 1.05 MG/DL (0.70-1.30); GLOMERULAR FILTRATION RATE > 60.0 (>42); GLUCOSE, FASTING 64 MG/DL (74-106); POTASSIUM SERUM 3.9 MMOL/L (3.5-5.1); SODIUM LEVEL 138 MMOL/L (136-145)
[2024-07-18 07:51] LABS: MAGNESIUM LEVEL 2.1 MG/DL (1.8-2.4)
[2024-07-18 08:04] VITALS: BP 154/80; TEMP 98.2; O2SAT 97
[2024-07-18] MEDS: PANTOPRAZOLE 40MG VIAL IV SCH (09:00)
[2024-07-18] MEDS ORDERED: OXYC1TAB23 PO (10:21)
[2024-07-18] MEDS ORDERED: POTA-151 PO (10:21)
[2024-07-18] MEDS ORDERED: COLA100C5 PO (10:21)
[2024-07-18] MEDS ORDERED: MAGN400T35 PO (10:21)
[2024-07-18] MEDS ORDERED: HYDR-3713 PO (13:25)
== END 2024-07-18 14:42 | disposition home or self-care (01) ==
LOC: M ED 09:28 → M ED INP 14:50 → INTOOBSV 14:50 → M MSPAV 17:51
PROVIDERS: ADMIT Internal Medicine; ATTEND Internal Medicine
DX: R10.31 Right lower quadrant pain (principal); G89.18 Other acute postprocedural pain; Z98.890 Other specified postprocedural states; E87.6 Hypokalemia; F41.9 Anxiety disorder, unspecified; F32.A Depression, unspecified; R45.851 Suicidal ideations; Z90.89 Acquired absence of other organs; Z79.899 Other long term (current) drug therapy
CPT/HCPCS: 36415; 74177; 80048; 80076; 83690; 83735; 84145; 85025; 85027; 86140; 96361; 96372; 96374; 96375; 96376; 99284; G0378; J2405; J2543; J3475; Q9967

== ENCOUNTER 2024-08-21 13:25 | Emergency (ER) | payer MEDICARE, MEDICAID ==
[~2024-08-21] VITALS: Ht 162.6 cm; Wt 50.7 kg
[~2024-08-21 13:25] MED LIST changes: +CENT1TAB PO; +COLA100C5 PO; +HYDR-3713 PO; +MAGN400T35 PO; +OXYC1TAB23 PO; +POTA-151 PO
[2024-08-21 18:02] LABS: BASO % 0.4 % (0.0-1.0); EOS # 0.1 10^3/uL (0.0-0.5); EOS % 1.6 % (0.0-3.0); HEMATOCRIT 36.3 % (42.0-52.0); HEMOGLOBIN 12.3 g/dl (13.5-17.5); LYMPH # 1.1 10^3/uL (1.5-5.0); LYMPH % 21.8 % (24.0-44.0); MEAN CORPUSCULAR HEMOGLOBIN 30.2 pg (27.0-33.0); MEAN CORPUSCULAR HGB CONC 33.9 g/dl (32.0-36.5); MEAN CORPUSCULAR VOLUME 89.2 fl (80.0-96.0); MONO # 0.3 10^3/uL (0.0-0.8); MONO % 6.2 % (2.0-8.0); NEUTROPHILS # 3.6 10^3/uL (1.5-8.5); NEUTROPHILS % 69.8 % (36.0-66.0); PLATELET COUNT, AUTOMATED 208 10^3/uL (150-450); RED BLOOD COUNT 4.07 10^6/uL (4.30-6.10); WHITE BLOOD COUNT 5.1 10^3/uL (4.0-10.0)
[2024-08-21 18:40] LABS: BLOOD UREA NITROGEN 14 MG/DL (9-23); CALCIUM LEVEL 9.8 MG/DL (8.3-10.6); CARBON DIOXIDE LEVEL 28 MMOL/L (20-31); CHLORIDE LEVEL 107 MMOL/L (98-107); CREATININE FOR GFR 1.07 MG/DL (0.70-1.30); GLOMERULAR FILTRATION RATE > 60.0 (>42); GLUCOSE, FASTING 87 MG/DL (74-106); POTASSIUM SERUM 3.6 MMOL/L (3.5-5.1); SODIUM LEVEL 141 MMOL/L (136-145); VITAMIN B12 LEVEL 842 PG/ML (211-911)
[2024-08-21] MEDS ORDERED: CIPR-249 PO (20:39)
[2024-08-21] MEDS ORDERED: IBUP200C25 PO (20:39)
[2024-08-21] MEDS: IBUPROFEN 400MG TAB PO ONE (20:41)
[2024-08-21] MEDS: CIPROFLOXACIN 500MG TABLET PO ONE (20:41)
[2024-08-21 20:50] VITALS: BP 163/79; TEMP 96.9; O2SAT 97
== END 2024-08-21 20:55 | disposition home or self-care (01) ==
LOC: M ED 13:25
DX: N45.3 Epididymo-orchitis (principal); R20.2 Paresthesia of skin; Z79.1 Long term (current) use of non-steroidal anti-inflammatories (NSAID); Z79.810 Long term (current) use of selective estrogen receptor modulators (SERMs); Z79.899 Other long term (current) drug therapy

== ENCOUNTER 2025-10-04 22:30 | Emergency (ER) | payer MEDICARE, MEDICAID ==
[~2025-10-04] VITALS: Ht 162.6 cm; Wt 52.0 kg
[~2025-10-04 22:30] MED LIST changes: +CIPR-249 PO; +IBUP200C25 PO; -ROSU10TA61; +ROSU10TA90
[2025-10-04 23:09] LABS: BASO # 0.0 10^3/uL (0.0-0.2); BASO % 0.8 % (0.0-1.0); EOS # 0.1 10^3/uL (0.0-0.5); EOS % 1.9 % (0.0-3.0); LYMPH # 1.4 10^3/uL (1.5-5.0); LYMPH % 26.9 % (24.0-44.0); MONO # 0.3 10^3/uL (0.0-0.8); MONO % 5.3 % (2.0-8.0); NEUTROPHILS # 3.4 10^3/uL (1.5-8.5); NEUTROPHILS % 64.9 % (36.0-66.0); PLATELET COUNT, AUTOMATED 250 10^3/uL (150-450)
[2025-10-04 23:30] LABS: KETONE, URINE AUTO RFX NEGATIVE (NEGATIVE); LEUKOCYTE ESTERASE UR AUTO RFX TRACE (NEGATIVE); MUCUS, URINE RFX SMALL (NEGATIVE); NITRITE, URINE AUTO RFX NEGATIVE (NEGATIVE); RBC, URINE AUTO RFX 4 /HPF (0-3); SQUAM EPITHELIAL CELL UR AURFX 0 /HPF (0-6); WBC, URINE AUTO RFX 14 /HPF (0-3)
[2025-10-04 23:39] LABS: ALT/SGPT 26.0 U/L (7.0-40); AST/SGOT 30.0 U/L (<34); CALCIUM LEVEL 10.1 MG/DL (8.3-10.6); CARBON DIOXIDE LEVEL 30.0 MMOL/L (20-31); CHLORIDE LEVEL 101.0 MMOL/L (98-107); CREATININE FOR GFR 1.27 MG/DL (0.70-1.30); GLOMERULAR FILTRATION RATE 59.3 (>42); POTASSIUM SERUM 3.8 MMOL/L (3.5-5.1); SODIUM LEVEL 142.0 MMOL/L (136-145)
[2025-10-05] MEDS ORDERED: ISOVUE-370 76% 100 ML VIAL As Ordered ONE (00:35)
[2025-10-05 01:47] VITALS: BP 176/82; TEMP 97.8; O2SAT 96
== END 2025-10-05 01:49 | disposition home or self-care (01) ==
LOC: M ED 22:30
DX: N20.0 Calculus of kidney (principal); N32.89 Other specified disorders of bladder; R10.9 Unspecified abdominal pain; D18.09 Hemangioma of other sites; F41.9 Anxiety disorder, unspecified; F32.A Depression, unspecified; Z79.1 Long term (current) use of non-steroidal anti-inflammatories (NSAID); Z79.2 Long term (current) use of antibiotics; Z79.899 Other long term (current) drug therapy; Z79.810 Long term (current) use of selective estrogen receptor modulators (SERMs)
CPT/HCPCS: 36415; 74177; 80048; 80076; 81001; 83690; 85025; 87086; 99283; Q9967